=== PATIENT | female | born 1945 | race Caucasian/White ===

== ENCOUNTER 2019-04-09 13:29 | Emergency (ER) | payer MEDICARE, OTHER ==
[~2019-04-09] VITALS: Ht 160 cm; Wt 57.0 kg
[~2019-04-09 13:29] MED LIST: ALPR1TAB7 PO; AMLO5TAB4 PO; ASPI-817 PO; HYDR-3980 PO; OMEP20CA16 PO
[2019-04-09 13:35] VITALS: Ht 160 cm; Wt 57.0 kg
--- NOTE | 2019-04-09 14:02 | ERD ---
ER Documentation Chief Complaint Chief Complaint SOB x4 days, c/o spasms in L arm and leg HPI 73-year-old female presenting with intermittent shortness of breath for the past 4 days with complaints of muscle spasms, mostly in her bilateral upper back. She does have a history of a back fracture but no recent injuries. She takes No rco chronically for pain. Denies any chest pain. She states she feels burning sensation in her bilateral back with no alleviating alleviating factors. Exacerbated by deep breathing. No recent fevers, chills, cough, travel, immobilization. ROS All systems reviewed and are negative except as per history of present illness. Medications Home Meds Reported Medications Omeprazole* (Omeprazole*) 20 Mg Capsule.dr, 20 MG PO DAILY, #30 CAP 04/09/19 Amlodipine Besylate* (Norvasc*) 5 Mg Tablet, 5 MG PO DAILY, TAB 04/09/19 Aspirin* (Aspirin* EC) 81 Mg Tablet.dr, 81 MG PO DAILY, TAB 04/09/19 Hydrocodone/Acetaminophen ([place] 10-325 Tablet) 1 Each Tablet, 1 EACH PO Q4H, TAB 04/09/19 Alprazolam* (Alprazolam*) 1 Mg Tablet, 1 MG PO QHS PRN for ANXIETY, TAB 04/09/19 Allergies Allergies: Coded Allergies: No Known Allergy (Unverified , 04/09/19) PMhx/Soc History of Surgery: Yes (Left leg surgery) Hx Miscellaneous Medical Probl: Yes (Hypertension, osteoporosis, history of T9 fracture) Hx Alcohol Use: No Hx Substance Use: No Hx Tobacco Use: No FmHx Family History: No diabetes Physical Exam Vitals Vital Signs Date Temp Pulse Resp B/P (MAP) Pulse Ox O2 O2 Flow FiO2 Time Delivery Rate 04/09/19 78 18 136/69 99 Nasal 15:55 (91) Cannula 04/09/19 Nasal 2 14:49 Cannula 04/09/19 98.2 101 24 138/86 98 13:35 (103) Physical Exam const: No acute distress Head: Atraumatic Eyes: Normal Conjunctiva ENT: Normal External Ears, Nose and Mouth. Neck: Full range of motion. No meningismus. No JVD Resp: Clear to auscultation bilaterally Cardio: Regular rate and rhythm, no murmurs. 2+ distal pulses in all 4 extremities Abd: Soft, non tender, non distended. Normal bowel sounds Skin: No petechiae or rashes Back: No midline or flank tenderness Ext: No cyanosis, or edema Neur: Awake and alert, normal speech, no facial asymmetry, strength and sensations intact in all 4 extremities Psych: Normal Mood and Affect Result Diagram: 04/09/19 1444 04/09/19 1444 Results 24 hrs Laboratory Tests Test 04/09/19 14:44 04/09/19 14:46 04/09/19 16:35 White Blood Count 6.0 10^3/ul Red Blood Count 4.80 10^6/ul Hemoglobin 14.2 g/dl Hematocrit 43.2 % Mean Corpuscular Volume 90.0 fl Mean Corpuscular Hemoglobin 29.6 pg Mean Corpuscular Hemoglobin Concent 32.9 g/dl Red Cell Distribution Width 14.6 % Platelet Count 138 10^3/UL Mean Platelet Volume 10.3 fl Immature Granulocytes % 0.500 % Neutrophils % 69.5 % Lymphocytes % 17.1 % Monocytes % 11.8 % Eosinophils % 0.3 % Basophils % 0.8 % Nucleated Red Blood Cells % 0.0 /100WBC Immature Granulocytes # 0.030 10^3/ul Neutrophils # 4.2 10^3/ul Lymphocytes # 1.0 10^3/ul Monocytes # 0.7 10^3/ul Eosinophils # 0.0 10^3/ul Basophils # 0.1 10^3/ul Nucleated Red Blood Cells # 0.0 10^3/ul Prothrombin Time 13.2 Sec Prothrombin Time Ratio 1.0 INR International Normalized Ratio 0.99 Activated Partial Thromboplast Time 29.7 Sec D-Dimer 382.67 ng/ml D-Dimer Comment Sodium Level 142 mmol/L Potassium Level 4.0 mmol/L Chloride Level 103 mmol/L Carbon Dioxide Level 31 mmol/L Anion Gap 8 Blood Urea Nitrogen 27 mg/dl Creatinine 0.98 mg/dl Est Glomerular Filtrat Rate mL/min mL/min Glucose Level 110 mg/dl Calcium Level 10.2 mg/dl Troponin I < 0.012 ng/ml POC Venous Lactate 0.8 mmol/L Bedside Urine pH (LAB) 6.0 Bedside Urine Protein (LAB) 1+ Bedside Urine Glucose (UA) Negative Bedside Urine Ketones (LAB) 1+ Bedside Urine Blood Trace-intact Bedside Urine Nitrite (LAB) Negative Bedside Urine Leukocyte Esterase (L Negative Current Medications Medications Dose Sig/Meghana Start Time Status Last (Trade) Ordered Route PRN Stop Time Admin Dose Reason Admin IV Flush 10 ml STK-MED 04/09/19 DC (NS 10 ml) ONCE .ROUTE 16:01 04/09/19 16:02 Sodium 100 ml @ ud STK-MED 04/09/19 DC Chloride ONCE .ROUTE 16:04/09/19 16:02 Iohexol 100 ml @ ud STK-MED 04/09/19 DC ONCE .ROUTE 16:04/09/19 16:02 Ketorolac 30 mg ONCE STAT 04/09/19 DC 04/09/19 Tromethamine IV 16:43 04/09/19 17:01 (Toradol) 16:45 Procedures/MDM EMERGENT LABS AND DIAGNOSTIC STUDIES: Lab Results above were reviewed and interpreted by me. CBC: Mild thrombocytopenia. No anemia or evidence of infection BMP: Mild BUN elevation, likely secondary to dehydration. No e/o clinically significant electrolyte abnormality severe acidosis, alkalosis, renal failure, diabetic ketoacidosis Troponin within normal limits, no evidence of acute myocardial injury Urine dip with 2+ ketones, no evidence of infection 12-lead EKG was interpreted by Leonie Rascon MD: Normal Sinus Rhythm with ventricular rate of 68 beats per minute Normal axis Normal intervals No acute ST or T wave changes suggestive of acute ischemia or STEMI. Radiology Results as interpreted by Radiology below were reviewed by SKris Rascon MD: Chest x-ray shows possible right lower lobe consolidation CTA chest no evidence of PE or dissection. No other acute abnormalities. Initial Nursing notes reviewed. Previous Medical Records requested via the Electronic Health Record. EMERGENCY DEPARTMENT COURSE / MEDICAL DECISION MAKING: Patient is presenting with shortness of breath and back pain. Low suspicion for ACS. Vitals stable. Chest x-ray showed possible consolidation. For this reason CT chest was done to evaluate for possible pneumonia versus pulmonary embolism. Labs did not show any significant abnormalities. I feel the patient is stable for discharge with continued outpatient follow-up. Return precautions discussed. Lab and imaging results provided to patient. Advised to follow-up with PCP within the next 2 days. Patient's blood pressure was elevated (>120/80) but appears stable without evidence of hypertensive emergency or urgency. The patient was counseled about the risks of hypertension and urged to pursue outpatient monitoring and therapy within a week with their primary care physician. Departure Diagnosis: Primary Impression: Acute thoracic back pain Back pain laterality: bilateral Qualified Codes: M54.6 - Pain in thoracic spine Additional Impression: Shortness of breath Condition: Stable RODOLFO RASCON MD Apr 09, 2019 14:02
[2019-04-09] MEDS ORDERED: IOHEXOL 100 ML ONE (16:01)
[2019-04-09] MEDS ORDERED: SOD CHLORIDE 0.9% 100 ML ONE (16:01)
[2019-04-09] MEDS ORDERED: KETOROLAC 30 MG INJ IV STA (16:43)
[2019-04-09 17:36] VITALS: BP 158/79; PULSE 86; RESP 18
== END 2019-04-09 17:46 | disposition home or self-care (01) ==
LOC: E/R 13:29
DX: M54.6 Pain in thoracic spine (principal); I10 Essential (primary) hypertension; Z79.82 Long term (current) use of aspirin
CPT/HCPCS: 36415; 71045; 71250; 71275; 80048; 81003; 83605; 84484; 85025; 85378; 85610; 85730; 93005; 96374; 99285; J1885; Q9967